=== PATIENT | female | born 1980 | race African-American/Black ===

== ENCOUNTER 2018-08-26 04:26 | Emergency (ER) | payer SELFPAY ==
[~2018-08-26] VITALS: Ht 175.3 cm; Wt 78.0 kg
[2018-08-26 04:43] VITALS: BP 120/63
== END 2018-08-26 07:07 | disposition left against medical advice (07) ==
LOC: ER 06:46
DX: R07.89 Other chest pain (principal); R10.9 Unspecified abdominal pain; Z53.21 Procedure and treatment not carried out due to patient leaving prior to being seen by health care provider